=== PATIENT | male | born 1980 | race American Indian/Alaskan Native ===

== ENCOUNTER 2022-06-02 05:56 | Emergency (ER) | payer OTHER ==
--- NOTE | 2022-06-02 07:10 | Emergency Department Report ---
Blank Doc - Documentation Documentation: Needlestick protocol started see PAPERWORK ON FILE. <FRANKIE MCKINNEY - Last Filed: 06/02/22 07:05> - Documentation Documentation: I received call from employee pharmacy regarding need for medication adjustment as per infectious disease needlestick protocol. Adjustments have as made as per pharmacy recommendation. See note from pharmacy on chart <SAWYER PHELPS - Last Filed: 06/02/22 09:19>
[2022-06-02 08:43] LABS: Alanine Aminotransferase 37 units/L (7-56); Albumin 4.8 g/dL (3.9-5); BUN/Creatinine Ratio 18; Blood Urea Nitrogen 18 mg/dL (9-20); Calcium 9.6 mg/dL (8.4-10.2); Hemolysis Index 28
[2022-06-02 08:44] LABS: Hematocrit 47.9 % (35.5-45.6); Hemoglobin 15.4 gm/dl (11.8-15.2); Mean Corpuscular HGB Conc 32 % (32-34); Mean Corpuscular Volume 91 fl (84-94); Platelet Count 194 K/mm3 (140-440); Red Blood Count 5.28 M/mm3 (3.65-5.03)
[2022-06-02 10:57] LABS: Hepatitis B Surface Antigen Non-Reactive (Negative); Hepatitis C Virus Antibody Non-Reactive (NonReactive)
== END 2022-06-02 07:26 | disposition home or self-care (01) ==
LOC: EEVIPCON 05:56 → ED 05:56
DX: Z00.00 Encounter for general adult medical examination without abnormal findings (principal); Z53.21 Procedure and treatment not carried out due to patient leaving prior to being seen by health care provider
CPT/HCPCS: 36415; 80053; 80074; 85025; 87806; 99283